=== PATIENT | female | born 1935 | race Caucasian/White ===

== ENCOUNTER 2018-02-06 08:00 | Inpatient (IN) | payer OTHER, BC ==
[2018-02-06 11:49] VITALS: BMI 22.6
[2018-02-07] MEDS ORDERED: GENTAMICIN SO4 80 MG/2 ML VIAL ONE (12:57)
[2018-02-07] MEDS ORDERED: THROMBIN (BOVINE) 20,000 UNIT VIAL TP ONE (12:59)
[2018-02-07] MEDS ORDERED: PROPOFOL 20 ML ONE (14:59)
[2018-02-07] MEDS ORDERED: ROCURONIUM BROMIDE 50 MG/5 ML VIAL ONE (14:59)
[2018-02-07] MEDS ORDERED: MIDAZOLAM HCL 2 MG/2 ML SINGLE DOSE VIAL ONE (14:59)
[2018-02-07] MEDS ORDERED: LIDOCAINE HCL/PF 2% SDV 5ML VIAL ONE (15:01)
[2018-02-07] MEDS ORDERED: ceFAZolin SODIUM 1 GM VIAL ONE ×2 (15:23→23:14)
[2018-02-07] MEDS ORDERED: VANCOMYCIN 1,000 MG VIAL (RESTRICTED TO ID ONLY) ONE (15:25)
[2018-02-07] MEDS ORDERED: ONDANSETRON 4 MG/2 ML VIAL ONE (15:30)
[2018-02-07] MEDS ORDERED: DEXAMETHASONE SOD PHOSPHATE 4 MG/1 ML VIAL ONE (15:30)
[2018-02-07] MEDS ORDERED: LIDOCAINE 1%/EPI 1:100000 (50 ML MULTI DOSE VIAL) INF ONE (16:00)
[2018-02-07] MEDS ORDERED: BACITRACIN 50,000 UNITS VIAL NR ONE (16:00)
[2018-02-07] MEDS ORDERED: GLYCOPYRROLATE 0.2 MG/1 ML VIAL ONE (16:15)
[2018-02-07] MEDS ORDERED: NEOSTIGMINE METHYLSULFATE 0.5 MG/ML - 10 ML MDV ONE (16:15)
[2018-02-07] MEDS ORDERED: oxyCODONE HCL 5 MG TABLET PO PRN ×2 (16:40)
[2018-02-07] MEDS ORDERED: ONDANSETRON 4 MG/2 ML VIAL IVPUSH PRN ×2 (16:40→16:43)
[2018-02-07] MEDS ORDERED: morphine SULFATE 4 MG/ML VIAL IVPUSH PRN (16:40)
[2018-02-07] MEDS ORDERED: diphenhydrAMINE HCL 25 MG CAPSULE (FP) PO PRN (16:40)
[2018-02-07] MEDS ORDERED: DEXAMETHASONE SOD PHOSPHATE 4 MG/1 ML VIAL IVPUSH PRN (16:43)
[2018-02-07] MEDS ORDERED: PROMETHAZINE HCL 25 MG/1 ML VIAL IVPB PRN (16:43)
[2018-02-07] MEDS ORDERED: HYDROmorphone *PCA* 10MG/50ML DISP.SYRIN PCA SCH (16:45)
[2018-02-07] MEDS ORDERED: LACTATED RINGERS SOLUTION 1,000 ML/1,000 ML INFUS.BAG IV SCH (16:45)
--- NOTE | 2018-02-07 16:52 | OP ---
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
--- NOTE | 2018-02-07 16:53 | SURG ---
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 For further detail, please refer to operative report.
[2018-02-07] MEDS ORDERED: CEFAZOLIN 1 GM in DEXTROSE 5%-WATER - 50 ML IVPB SCH (18:00)
[2018-02-07] MEDS: LACTATED RINGERS SOLUTION 1,000 ML IV SCH (18:17)
[2018-02-07] MEDS ORDERED: FLU VACCINE QUAD 60 MCG/0.5 ML (MDV 18-19) IM ONE (18:30)
[2018-02-07] MEDS: ATORVASTATIN CA 10 MG TABLET (FP) PO SCH (21:19)
[2018-02-07] MEDS: MELATONIN 5 MG TABLETS PO SCH (21:19)
[2018-02-07] MEDS: NADOLOL 20 MG TABLET (FP) PO SCH (21:20)
[2018-02-07] MEDS: DOCUSATE SODIUM 100 MG CAPSULE (FP) PO SCH (21:20)
[2018-02-07] MEDS: HEPARIN NA (PORCINE) 5,000 UNITS/ML 1ML VIAL SQ SCH (21:25)
[2018-02-07] MEDS ORDERED: BENAZEPRIL 20 MG PO SCH (22:00)
[2018-02-07] MEDS ORDERED: AMLODIPINE PO SCH (22:00)
[2018-02-07] MEDS ORDERED: [UNRECOGNIZED DRUG - OTHER] PO SCH (22:00)
[2018-02-07] MEDS ORDERED: DEXTROSE 5%-WATER - 50 ML IVPB ONE (23:14)
[2018-02-07] MEDS: CEFAZOLIN 1 GM in DEXTROSE 5%-WATER - 50 ML IVPB SCH (23:45)
[2018-02-08] MEDS: LACTATED RINGERS SOLUTION 1,000 ML IV SCH ×2 (02:42→16:56)
[2018-02-08] MEDS ORDERED: DEXTROSE 5%-WATER - 50 ML IVPB ONE ×2 (06:18→15:02)
[2018-02-08] MEDS ORDERED: ceFAZolin SODIUM 1 GM VIAL ONE ×2 (06:18→15:02)
[2018-02-08] MEDS: HEPARIN NA (PORCINE) 5,000 UNITS/ML 1ML VIAL SQ SCH ×3 (06:21→21:34)
[2018-02-08] MEDS: DOCUSATE SODIUM 100 MG CAPSULE (FP) PO SCH ×3 (06:22→21:33)
[2018-02-08] MEDS: CEFAZOLIN 1 GM in DEXTROSE 5%-WATER - 50 ML IVPB SCH ×2 (06:30→15:08)
[2018-02-08 08:03] LABS: HEMATOCRIT 37.3 % (32.4-45.2); HEMOGLOBIN 12.3 GM/dL (10.7-15.3); MCH 30.4 pg (25.7-33.7); MCHC 32.9 g/dl (32.0-36.0); MEAN CELL VOLUME 92.4 fl (80-96); MEAN PLT VOLUME 8.6 fl (7.5-11.1); PLATELET COUNT 208 K/MM3 (134-434); RBC 4.04 M/mm3 (3.60-5.2); RDW 14.1 % (11.6-15.6); WHITE BLOOD COUNT 13.8 K/mm3 (4.0-10.0)
[2018-02-08 08:25] LABS: ANION GAP 9 MMOL/L (8-16); BLOOD UREA NITROGEN 16 mg/dL (7-18); CALCIUM 8.1 mg/dL (8.5-10.1); CHLORIDE 99 mmol/L (98-107); CO2 25 mmol/L (21-32); CREATININE 0.8 mg/dL (0.55-1.3); GLUCOSE,RANDOM 125 mg/dL (74-106); POTASSIUM 4.1 mmol/L (3.5-5.1); SODIUM 134 mmol/L (136-145)
--- NOTE | 2018-02-08 08:25 | HP ---
Admitting History and Physical - Admission History of Present Illness: 82 y/o female with h/o spinal stenosis s/p surgery for decompression This am pt c/o having trouble raising rt arm, able to squeeze and full funtion of hand no complins of LE changes - Past Medical History Cardiovascular: Yes: HTN, Hyperlipdemia Musculoskeletal: Yes: Osteoarthritis, Other (Disc disease) Endocrine: Yes: Other (osteoporosis) - Past Surgical History Past Surgical History: Yes: Joint Replacement - Smoking History Smoking history: Never smoked Aproximately how many cigarettes per day: 0 - Alcohol/Substance Use Hx Alcohol Use: Yes (social) Home Medications - Allergies Allergies/Adverse Reactions: Allergies Allergy/AdvReac Type Severity Reaction Status Date / Time No Known Allergies Allergy Verified 02/07/18 10:58 - Home Medications Home Medications: Ambulatory Orders AmLODIPine 5MG/BENAZEPRIL 20MG [Lotrel 20] 5 - 20 mg PO BID 08/07/11 Atorvastatin Ca [Lipitor (Restricted To Cardiology)] 10 mg PO HS 08/07/11 Nadolol 20 mg PO BID 08/07/11 Ascorbic Acid [Vitamin C] 500 mg PO DAILY 02/06/18 Aspirin [ASA -] 81 mg PO DAILY 02/06/18 Cholecalciferol (Vitamin D3) [Vitamin D] 2,000 unit PO DAILY 02/06/18 Melatonin 5 mg PO HS 02/06/18 Risedronate Sodium 35 mg PO WEEKLY 02/06/18 Review of Systems - Review of Systems Cardiovascular: denies: Chest Pain Respiratory: denies: SOB Gastrointestinal: denies: Abdominal Pain, Nausea Genitourinary: reports: No Symptoms Neurological: reports: Weakness (right shoulder and upper arm). denies: Numbness, Parasthesia Physical Examination Vital Signs: Vital Signs Temperature 99.4 F 02/08/18 06:00 Pulse Rate 78 02/08/18 06:00 Respiratory Rate 20 02/08/18 06:00 Blood Pressure 139/67 02/08/18 06:00 O2 Sat by Pulse Oximetry (%) 93 L 02/07/18 21:00 Cardiovascular: Yes: Regular Rate and Rhythm Respiratory: Yes: Regular, CTA Bilaterally Gastrointestinal: Yes: Normal Bowel Sounds, Soft Musculoskeletal: Yes: Muscle Weakness (rt upper arm) Edema: No Neurological: Yes: Alert, Oriented, Weakness (right arm--unable to lift or maintain elevated at shoulder hand able to use with intact sensation --no sign cahnge compared to left LE from bilat). 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 Operation: C5/6 anterior cervical decompression fusion, hemicorpectomies and restorationist of lordosis with reconstruction using Peek cage and anterior plating Post-Operative Diagnosis: Same as Pre-op Surgeon: Shun Rodriguez Further plan per NS Code(s): Z98.890 - OTHER SPECIFIED POSTPROCEDURAL STATES (2) Right arm weakness Assessment/Plan: --maybe deltoid paralysis --D/w NS service --[place] of steroids --PT Code(s): R29.898 - OTH SYMPTOMS AND SIGNS INVOLVING THE MUSCULOSKELETAL SYSTEM (3) Spinal stenosis Assessment/Plan: - Above Code(s): M48.00 - SPINAL STENOSIS, SITE UNSPECIFIED (4) HTN (hypertension) Assessment/Plan: -Monitor on Current meds Code(s): I10 - ESSENTIAL (PRIMARY) HYPERTENSION (5) HLD (hyperlipidemia) Code(s): E78.5 - HYPERLIPIDEMIA, UNSPECIFIED
[2018-02-08] MEDS ORDERED: PANTOPRAZOLE SODIUM 40 MG VIAL IVPUSH ONE (08:42)
--- NOTE | 2018-02-08 09:42 | PN ---
Progress Note (short form) - Note Progress Note: POD #1 Alert. Sitting up in bed. C/o incisional tenderness as well as inability to keep her right arm elevated above her head. Uses her left hand to assist RUE into raised position. As soon as patients releases right hand...."crashes to bed ". Noticed it last night and informed RN who notified Dr. Rodriguez. States she has complete sensation in her RUE. Has pain when she engages muscle of her RUE ( points to deltoid muscle). Voiding spontaneously. Ambulating unassisted. Wearing her soft cervical collar as instructed. Tolerating clears. Denies n/v/f/ c, CP or SOB. Denies numbness/tingling. Denies LE weakness. Last Vital Signs Temp Pulse Resp BP Pulse Ox 99.4 F 78 20 139/67 93 L 02/08/18 06:00 02/08/18 06:00 02/08/18 06:00 02/08/18 06:00 02/07/18 21:00 CBC, BMP 02/08/18 07:00 02/08/18 07:00 GAMALIEL OUTPUT 02/07/18 02/08/18 19:38 06:00 GAMALIEL 5 25 PE Gen: alert. nad. Neck: Soft. Supple. Dressing c/d/i. GAMLAIEL serosang. Trach midline Neuro: Air Tucker strength 5/5 bilat. UE sensation intact bilat. CN II-XII intact. Lifting RUE against resistance markedly reduced compared to LUE. Problem List - Problems (1) Spondylosis, cervical Assessment/Plan: 82 yo female s/p C5/6 anterior cervical decompression fusion, hemicorpectomies and cheondoism of lordosis with reconstruction using Peek cage and anterior plating. Now c/o RUE weakness and pain in region of deltoid muscle s/p surgical procedure. Incisional pain controlled well via PRN meds. Cont to ambulate Wear your cervical collar 23/24h/day (may remove while eating or bathing) Incentive spirometer Decadron 10 mg (once) with Protonix x 1 Cont Decadron 4 mg Q6H IV ABX to cont while GAMALIEL drain remains in PT Above plan discussed with Dr. Rodriguez and agrees. Code(s): M47.812 - SPONDYLOSIS W/O MYELOPATHY OR RADICULOPATHY, CERVICAL REGION
[2018-02-08] MEDS: ASPIRIN 81 MG CHEWABLE TABLETS PO SCH (09:43)
[2018-02-08] MEDS: FERROUS SO4 325 MG TABLET (FP) PO SCH (09:44)
[2018-02-08] MEDS: FOLIC ACID 1 MG TABLET (FP) PO SCH (09:44)
[2018-02-08] MEDS: LISINOPRIL 20 MG TABLET (FP) PO SCH ×2 (09:45→21:43)
[2018-02-08] MEDS: ASCORBIC ACID 500 MG TABLET (FP) PO SCH (09:45)
[2018-02-08] MEDS: CHOLECALCIFEROL (VITAMIN D3) 1,000 UNIT TABLET (FP) PO SCH (09:45)
[2018-02-08] MEDS ORDERED: DEXAMETHASONE SOD PHOSPHATE 10 MG/1 ML VIAL IVPUSH ONE (09:45)
[2018-02-08] MEDS: DEXAMETHASONE SOD PHOSPHATE 4 MG/1 ML VIAL IVPUSH SCH ×3 (13:00→21:34)
--- NOTE | 2018-02-08 13:08 | PN ---
Progress Note (short form) - Note Progress Note: Anesthesia Pt seen and examined S:alert and awake c/o difficulty lifting r shoulder O: Vital Signs Temperature 98.6 F 02/08/18 08:10 Pulse Rate 67 02/08/18 08:10 Respiratory Rate 18 02/08/18 08:10 Blood Pressure 152/73 02/08/18 08:10 O2 Sat by Pulse Oximetry (%) 93 L 02/07/18 21:00 CBC, BMP 02/08/18 07:00 02/08/18 07:00 A/P Current Active Problems HLD (hyperlipidemia) (Acute) HTN (hypertension) (Acute) Right arm weakness (Acute) S/P spinal surgery (Acute) Spinal stenosis (Acute) Spondylosis, cervical (Acute) s/p C5-C6 ACDF RECYCLING TECHNICIAN stopped Surgeon aware of should issues Doing well post op Continue current care Patrick Soni MD
[2018-02-08] MEDS: NADOLOL 20 MG TABLET (FP) PO SCH ×2 (13:49→21:44)
[2018-02-08] MEDS: amLODIPine BESYLATE 5 MG TABLET (FP) PO SCH ×2 (13:51→21:43)
[2018-02-08] MEDS: ATORVASTATIN CA 10 MG TABLET (FP) PO SCH (21:33)
[2018-02-08] MEDS: MELATONIN 5 MG TABLETS PO SCH (21:33)
[2018-02-09] MEDS: DEXAMETHASONE SOD PHOSPHATE 4 MG/1 ML VIAL IVPUSH SCH ×4 (04:00→14:37)
[2018-02-09] MEDS: HEPARIN NA (PORCINE) 5,000 UNITS/ML 1ML VIAL SQ SCH ×2 (06:29→14:37)
[2018-02-09] MEDS: DOCUSATE SODIUM 100 MG CAPSULE (FP) PO SCH ×2 (06:29→14:37)
--- NOTE | 2018-02-09 07:37 | PN ---
Progress Note, Physician - Current Medication List Current Medications: Active Medications Amlodipine Besylate (Norvasc -) 5 mg PO BID [facility] Last Admin: 02/08/18 21:43 Dose: Not Given Ascorbic Acid (Vitamin C -) 500 mg PO DAILY [facility] Last Admin: 02/08/18 09:45 Dose: 500 mg Aspirin (Asa -) 81 mg PO DAILY [facility] Last Admin: 02/08/18 09:43 Dose: 81 mg Atorvastatin Calcium (Lipitor -) 10 mg PO HS [facility] Last Admin: 02/08/18 21:33 Dose: 10 mg Cholecalciferol (Vitamin D3 -) 2,000 unit PO DAILY [facility] Last Admin: 02/08/18 09:45 Dose: 2,000 unit Dexamethasone Sodium Phosphate (Decadron Injection -) 4 mg IVPUSH Q6H-IV [facility] Last Admin: 02/09/18 04:00 Dose: 4 mg Diphenhydramine HCl (Benadryl Injection -) 12.5 mg IVPUSH ONCE PRN PRN Reason: FOR ITCHING Diphenhydramine HCl (Benadryl -) 25 mg PO Q6H PRN PRN Reason: FOR ITCHING Docusate Sodium (Colace -) 100 mg PO TID [facility] Last Admin: 02/09/18 06:29 Dose: 100 mg Ferrous Sulfate (Feosol -) 325 mg PO DAILY [facility] Last Admin: 02/08/18 09:44 Dose: 325 mg Folic Acid (Folic Acid -) 1 mg PO DAILY [facility] Last Admin: 02/08/18 09:44 Dose: 1 mg Heparin Sodium (Porcine) (Heparin -) 5,000 unit SQ TID [facility] Last Admin: 02/09/18 06:29 Dose: 5,000 unit Lactated Ringer's (Lactated Ringers Solution) 1,000 mls @ 125 mls/hr IV ASDIR [facility] Last Admin: 02/08/18 16:56 Dose: Not Given Lisinopril (Prinivil) 20 mg PO BID [facility] Last Admin: 02/08/18 21:43 Dose: Not Given Melatonin (Melatonin) 5 mg PO HS [facility] Last Admin: 02/08/18 21:33 Dose: 5 mg Morphine Sulfate (Morphine Sulfate) 4 mg IVPUSH Q4H PRN PRN Reason: PAIN LEVEL 7 - 10 Nadolol (Corgard -) 20 mg PO BID [facility] Last Admin: 02/08/18 21:44 Dose: Not Given Ondansetron HCl (Zofran Injection) 4 mg IVPUSH Q4H PRN PRN Reason: NAUSEA AND/OR VOMITING Oxycodone HCl (Roxicodone -) 5 mg PO Q4H PRN PRN Reason: PAIN LEVEL 1-5 Oxycodone HCl (Roxicodone -) 10 mg PO Q4H PRN PRN Reason: PAIN LEVEL 6-10 Promethazine HCl (Phenergan Injection -) 12.5 mg IVPB Q6H PRN PRN Reason: NAUSEA AND/OR VOMITING - Objective Vital Signs: Vital Signs Temperature 98.5 F 02/09/18 06:00 Pulse Rate 66 02/09/18 06:00 Respiratory Rate 20 02/09/18 06:00 Blood Pressure 145/67 02/09/18 06:00 O2 Sat by Pulse Oximetry (%) 98 02/08/18 21:00 Cardiovascular: Yes: Regular Rate and Rhythm Respiratory: Yes: Regular, CTA Bilaterally Gastrointestinal: Yes: Normal Bowel Sounds, Soft Neurological: Yes: Weakness (of rt shoulder) Labs: CBC, BMP 02/08/18 07:00 02/08/18 07:00 Problem List - Problems (1) S/P spinal surgery Assessment/Plan: Operative Date: 02/07/18 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 Operation: C5/6 anterior cervical decompression fusion, hemicorpectomies and christian of lordosis with reconstruction using Peek cage and anterior plating Post-Operative Diagnosis: Same as Pre-op Surgeon: Shun Rodriguez Further plan per NS Code(s): Z98.890 - OTHER SPECIFIED POSTPROCEDURAL STATES (2) Right arm weakness Assessment/Plan: --maybe deltoid palsy --D/w NS service --[place] of steroids --PT Code(s): R29.898 - OTH SYMPTOMS AND SIGNS INVOLVING THE MUSCULOSKELETAL SYSTEM (3) Spinal stenosis Assessment/Plan: - Above Code(s): M48.00 - SPINAL STENOSIS, SITE UNSPECIFIED (4) HTN (hypertension) Assessment/Plan: -Monitor on Current meds Code(s): I10 - ESSENTIAL (PRIMARY) HYPERTENSION (5) HLD (hyperlipidemia) Code(s): E78.5 - HYPERLIPIDEMIA, UNSPECIFIED
--- NOTE | 2018-02-09 07:58 | PN ---
Progress Note (short form) - Note Progress Note: POD 2 Patient seen and examined. Relays concern over her RUE weakness, though states she feels her arm is improving and is hoping this is a good sign. Reports being able to get her fingers to her eyebrow and being able to hold a cup, both of which she wasn't able to do yesterday. Denies cp, sob, headache, dizziness, difficulty with speech/swallowing, confusion, difficulty walking, n/v/d, calf pain/edema. Reports tolerating PO without issue, voiding without issue. + sore throat. Vital Signs Temp 98.5 F 02/09/18 06:00 Pulse 66 02/09/18 06:00 Resp 20 02/09/18 06:00 BP 145/67 02/09/18 06:00 Pulse Ox 98 02/08/18 21:00 Intake & Output 02/08/18 02/08/18 02/09/18 11:59 23:59 11:59 Intake Total 550 Output Total 1755 1590 10 Balance -1755 -1040 -10 Intake: IV 500 Lactated Ringers Solution 500 1,000 ml @ 125 mls/hr IV ASDIR [facility] Rx#: [id number] IVPB 50 Output: Drainage 55 40 10 Right Neck 55 40 10 Urine 1700 1550 [place] 1700 Void 1550 Other: Voiding Method Toilet Toilet Gen: awake, alert, nad, speech fluent, comprehension intact Neck: soft collar in place, dressing with moderate serosanguious drainage, neck soft, no palpable hematoma. Resp: cta b/l CV: rrr, s1s2 Abdo: soft, nt/nd Neuro: No facial asymmetry noted, B/L le's 5/5 dorsiflexion/plantar flexion, knee flexion/extension, SILT b/l. LUE with 5/5 biceps/triceps/deltoids, RUE able bring fingers to eyebrow with elbow in flexion, able to hold cup (observed) , brings arm out to 50-60 degrees and can hold for approx 5 seconds, able to bring arm forward to 40 degrees and able to hold for 5 seconds. 1/5 detoid strength. RUE 5/5 biceps/triceps. Construction Tech strength intact b/l, shoulder shrug intact b/l SILT equal b/l UEs. A/P: 82 y/o F w/ PMHx OA s/p b/l knee replacements (2010), hld, htn, C5/6 spondylosis, now POD s/p C5/6 anterior cervical decompression fusion, hemicorpectomies and taoism of lordosis with reconstruction using Peek cage and anterior plating (02/07), complicated by RUE deltoid palsy. Pt with improvement since initiation of steroids. GAMALIEL output 10cc overnight GAMALIEL taken off of suction, removed without issue, tip intact, pt tolerated well. -Will continue steroid taper (instructions to follow) -Continue Decadron IV 4mg q6hrs -Pain control as ordered -Plan for d/c later today likely to home with outpt PT above d/w attending , Dr Arias
[2018-02-09] MEDS ORDERED: BENZOCAINE/MENTH/CETYLPYRD CL 1 EACH LOZENGE MM PRN (07:59)
[2018-02-09] MEDS ORDERED: amLODIPine BESYLATE 10 MG TABLET (FP) PO SCH (10:00)
[2018-02-09] MEDS ORDERED: LISINOPRIL 20 MG TABLET (FP) PO SCH (10:00)
[2018-02-09] MEDS: FOLIC ACID 1 MG TABLET (FP) PO SCH (10:24)
[2018-02-09] MEDS: FERROUS SO4 325 MG TABLET (FP) PO SCH ×2 (10:24→10:30)
[2018-02-09] MEDS: CHOLECALCIFEROL (VITAMIN D3) 1,000 UNIT TABLET (FP) PO SCH (10:24)
[2018-02-09] MEDS: ASCORBIC ACID 500 MG TABLET (FP) PO SCH (10:25)
[2018-02-09] MEDS: ASPIRIN 81 MG CHEWABLE TABLETS PO SCH (10:25)
[2018-02-09 14:40] VITALS: BP 154/58; PULSE 73; TEMP 98.3
--- NOTE | 2018-02-09 16:22 | CONS ---
DATE OF CONSULTATION: 02/09/2018 REFERRING PHYSICIAN: Figueroa Cormier MD. HISTORY OF PRESENT ILLNESS: The patient is an 82-year-old woman with a past medical history of C5-6 spondylosis who was admitted on February 07, 2018 after undergoing C5-6 anterior cervical decompression fusion with hemicorpectomies and baptist of lordosis reconstruction using PEEK cage and anterior plating performed by Dr. Esquivel. Postoperatively, the patient noted that she had weakness of her right upper extremity and was admitted for further workup and observation. The patient underwent a CT of the cervical spine which showed no fracture and status post anterior fusion C5-6 with interbody spacer. There was some soft tissue changes and anterior drain noted with surrounding air. The patient was seen by Dr. 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 The patient again was having problems raising her arm but she has noted slight improvement as she can bend her elbow better. She notes no numbness or tingling of the right upper extremity and no weakness in the hand distally. She notes no leg weakness, no visual field cut, no blurry vision or double vision that is new, no facial weakness, difficulty swallowing, and difficulty with speech. The patient did have blood work on February 08, 2018. WBCs were elevated at 13.8, hemoglobin 12.3, and platelet count over 200. She had a slightly low sodium of 134, potassium as 4.1, chloride 99, BUN 16, and creatinine 0.8. The patient was evaluated by Physical Therapy and was able to ambulate 120 feet without assistive device with a steady gait. The patient does feel terribly well without any significant amount of pain in the right upper extremity and no other weakness is noted in the left upper extremity or bilateral lower extremities. The patient is wearing a soft collar as directed by Dr. Esquivel and she can take off the collar for an hour or so on a daily basis. She states she has no bowel or bladder incontinence or retention. PAST MEDICAL AND SURGICAL HISTORY: She underwent bilateral knee replacements. She has a history of hypertension and hyperlipidemia. SOCIAL HISTORY: She lives alone in a private house. She does have stairs to the bedroom and premorbidly independent, ambulatory without assistive device. Current function is as above. She is a nontobacco user and drinks alcohol socially. ALLERGIES: None noted. MEDICATIONS: Reviewed. The patient was placed on some steroids dexamethasone to see if this would improve her condition. She is also on subcutaneous heparin for DVT prophylaxis as well as home medications such as Norvasc and Lipitor. She is on pain medication including Roxicodone. REVIEW OF SYSTEMS: She has no headache currently but was getting headaches prior to the neck surgery. No blurry vision or double vision. No lightheadedness or dizziness. No nausea or vomiting, difficulty swallowing, and difficulty chewing. No chest pain or shortness of breath, dyspnea on exertion, cough or abdominal discomfort. No bowel or bladder changes noted above. No numbness or tingling in the upper or lower extremities. No other joint arthralgias noted. Weakness of the right shoulder but no other weakness. No gait instability. No fever or chills. No loss or weight gain. PHYSICAL EXAMINATION: General: A pleasant woman looking younger than her age seen sitting up in a chair at the bedside in no acute distress. She is wearing a soft cervical collar and is awake, alert, and fully oriented. She has good insight into her medical conditions. HEENT: She is normocephalic and atraumatic. Her extraocular muscles appear intact. Neck: Again, she has a soft cervical collar unable to evaluate surgical incisions. Extremities: Without any pitting, edema or calf tenderness. There is no skin rash or breakdown in the upper or lower extremities noted. Neuromuscular: She is awake, alert, and oriented x3. Cranial nerves II through XII are grossly intact. She has weakness in the shoulder girdle including flexion, abduction, and external rotation of the right shoulder but seems to have good elbow flexion, elbow extension, wrist flexion/extension, and magnetic prospecting supervisor strength of the right upper extremity all 5/5. She has a positive drop arm test in the right shoulder and normal sensation to pinprick including in the lateral aspect of the right arm and the axillary nerve distribution. She has symmetric reflexes and good strength and motor power throughout the left upper extremity and bilateral lower extremities all 5/5. She has some arthritic changes in the hands which are not limiting. She has good joint stability and no other gross arthritic change other than the hands. No tenderness in the right shoulder. OVERALL IMPRESSION: 1. Right proximal upper extremity weakness rule out axillary neuropathy, upper trunk plexopathy seems less likely. Also differential for rotator cuff tear although this seems highly unlikely given the lack of any pain. 2. Status post C5-6 anterior cervical decompression fusion instrumentation due to C5-6 spondylosis. 3. Deficits in activities of daily living mainly related to the right arm weakness. 4. History of hypertension. 5. Hyperlipidemia. 6. Status post bilateral knee replacements. 7. Osteoarthritis of the hands not limiting. 8. Mild hyponatremia. 9. Leukocytosis. 10. Elevated risk for deep venous thrombosis due to immobility. PLAN/SUGGESTION: 1. The patient should continue physical therapy while in the hospital but also follow up as an outpatient. 2. Would consider giving her a sling to prevent subluxation as well as for comfort. 3. Consider EMG nerve conduction studies in 2 to 3 weeks if she does not show adequate improvement and strength of the right proximal upper extremity. 4. Consider imaging of the right shoulder if EMG is negative. 5. Follow up with Dr. Esquievl as directed. 6. Could probably discontinue subcutaneous heparin as she is up and ambulatory. 7. Discharge planning home with outpatient therapy if she is able to get to therapy. 8. Soft cervical collar per Dr. Esquivel. I provided her my card and would be happy to follow up with her as an outpatient. Thank you for this referral. KALLIE AUGUST M.D. [id number]
[2018-02-09] MEDS ORDERED: NADOLOL 20 MG TABLET (FP) PO SCH (22:00)
== END 2018-02-09 17:18 | disposition home or self-care (01) | DRG 472 ==
LOC: EDSTATUS 08:00 → JSAMEDAYSX 02-07 09:42 → J8W 02-07 18:00
PROVIDERS: ADMIT Family Medicine; ATTEND Neurological Surgery
PROC: 0RG00A0 Fusion of Occipital-cervical Joint with Interbody Fusion Device, Anterior Approach, Anterior Column, Open Approach (ICD-10-PCS; principal; 2018-02-07 11:00)
DX: M40.50 Lordosis, unspecified, site unspecified (principal); M47.12 Other spondylosis with myelopathy, cervical region; G97.82 Other postprocedural complications and disorders of nervous system; M48.00 Spinal stenosis, site unspecified; I10 Essential (primary) hypertension; E78.5 Hyperlipidemia, unspecified; G72.89 Other specified myopathies
CPT/HCPCS: 36415; 72125-TC; 76000-TC-FY; 80048; 85027; 86850; 86900; 86901; 94010; 94760; 97116-GP; 97161-GP; J1100; J1644

== ENCOUNTER 2018-11-01 03:52 | Emergency (ER) | payer OTHER, BC ==
[2018-11-01 04:21] VITALS: BP 179/81; PULSE 55; TEMP 98.2; BMI 22.6
[2018-11-01] MEDS ORDERED: ONDANSETRON *ODT* 4 MG TABLET SL ONE (04:54)
[2018-11-01] MEDS ORDERED: ONDANSETRON *ODT* 4 MG TABLET ONE (05:07)
--- NOTE | 2018-11-01 05:37 | PDOC ---
Documentation entered by Cam Diaz SCRIBE, acting as scribe for Aurora Lopez DO. Aurora Lopez DO: This documentation has been prepared by the Joe baptiste Daniel, SCRIBE, under my direction and personally reviewed by me in its entirety. I confirm that the documentation accurately reflects all work , treatment, procedures, and medical decision making performed by me. History of Present Illness - General Chief Complaint: Injury Stated Complaint: FALL/INJURY TO LT ARM History Source: Patient Exam Limitations: No Limitations - History of Present Illness Initial Comments: 11/01/18 05:06 The patient is an 83 year old female with a past medical history of HTN, HLD, and b/l knee replacements here today for evaluation of left shoulder pain s/p fall. The patient reports that she was walking around her house and tripped on her dog and fell landing on her left shoulder. She reports having 10/10 left shoulder pain and states that she is unable to move her left shoulder. Patient denies headache, lightheadedness. Denies fever, chills. Denies chest pain, shortness of breath. Denies nausea, vomiting, diarrhea, abdominal pain. Allergies: NKA PCP: Figueroa Cormier Past History - Past Medical History Allergies/Adverse Reactions: Allergies Allergy/AdvReac Type Severity Reaction Status Date / Time No Known Allergies Allergy Verified 11/01/18 04:21 Home Medications: Ambulatory Orders AmLODIPine 5MG/BENAZEPRIL 20MG [Lotrel (Nf)] 5 - 20 mg PO BID 08/07/11 Atorvastatin Ca [Lipitor] 10 mg PO HS 08/07/11 Nadolol 20 mg PO BID 08/07/11 Ascorbic Acid [Vitamin C] 500 mg PO DAILY 02/06/18 Aspirin [ASA -] 81 mg PO DAILY 02/06/18 Cholecalciferol (Vitamin D3) [Vitamin D3] 2,000 unit PO DAILY 02/06/18 Melatonin 5 mg PO HS 02/06/18 Dexamethasone [Decadron] 4 mg PO DAILY 4 Days #10 tablet 02/09/18 Docusate Sodium [Colace -] 100 mg PO TID capsule 02/09/18 Docusate Sodium [Colace] 100 mg PO BID #30 capsule 02/09/18 Ferrous Sulfate [Feosol] 325 mg PO DAILY ud 02/09/18 Nadolol [Corgard -] 40 mg PO HS tablet 02/09/18 Oxycodone HCl/Acetaminophen [Percocet 5-325 mg Tablet] 1 tab PO Q6H PRN #20 tablet MDD 4 02/09/18 Ondansetron [Ondansetron Odt] 8 mg PO Q8H PRN #20 tab.rapdis MDD 3 11/01/18 Oxycodone HCl/Acetaminophen [Percocet 5-325 mg Tablet] 1 tab PO Q8H PRN #12 tablet MDD 3 11/01/18 Anemia: No Asthma: No Cancer: No Cardiac Disorders: No CVA: No COPD: No CHF: No Dementia: No Diabetes: No GI Disorders: No Disorders: No HTN: Yes Hypercholesterolemia: Yes Liver Disease: No Thyroid Disease: No - Surgical History Cholecystectomy: Yes Orthopedic Surgery: Yes (isidoro. knee replacement 7 years ago) - Immunization History Td Vaccination: No - Suicide/Smoking/Psychosocial Hx Smoking Status: No Smoking History: Never smoked Have you smoked in the past 12 months: No Number of Cigarettes Smoked Daily: 0 Information on smoking cessation initiated: No Hx Alcohol Use: No Drug/Substance Use Hx: No Substance Use Type: None Hx Substance Use Treatment: No Review of Systems - Review of Systems Able to Perform ROS?: Yes Comments:: 11/01/18 05:06 GENERAL/CONSTITUTIONAL: No fever or chills. No weakness. HEAD, EYES, EARS, NOSE AND THROAT: No change in vision. No ear pain or discharge. No sore throat. GASTROINTESTINAL: No nausea, vomiting, diarrhea or constipation. GENITOURINARY: No dysuria, frequency, or change in urination. CARDIOVASCULAR: No chest pain or shortness of breath. RESPIRATORY: No cough, wheezing, or hemoptysis. MUSCULOSKELETAL: +left shoulder pain. No neck or back pain. SKIN: No rash NEUROLOGIC: No headache, vertigo, loss of consciousness, or change in strength/ sensation. ENDOCRINE: No increased thirst. No abnormal weight change. HEMATOLOGIC/LYMPHATIC: No anemia, easy bleeding, or history of blood clots. ALLERGIC/IMMUNOLOGIC: No hives or skin allergy. *Physical Exam - Vital Signs Last Vital Signs Temp Pulse Resp BP Pulse Ox 98.2 F 55 L 18 179/81 H 100 11/01/18 03:52 11/01/18 03:52 11/01/18 03:52 11/01/18 03:52 11/01/18 03:52 - Physical Exam Comments: 11/01/18 05:07 GENERAL: Awake, in no acute distress HEAD: No signs of trauma EYES: PERRLA, EOMI NECK: Normal ROM, supple, non tender LUNGS: Breath sounds equal, clear to auscultation bilaterally. No wheezes, and no crackles. Normal work of breathing. HEART: Regular rate and rhythm ABDOMEN: Soft, nontender, normoactive bowel sounds. No guarding, no rebound. No masses. Non-distended. CHEST WALL:non tender EXTREMITIES: tenderness with severely limited ROM of left shoulder with no obvious deformity, distal pulses intact. normal ROM at elbow and wrist. NEUROLOGICAL: Alert, oriented x4, non focal SKIN: Warm, Dry, normal turgor, no rashes or lesions noted. 11/01/18 05:42 ED Treatment Course - RADIOLOGY Radiology Studies Ordered: Category Date Time Status HUMERUS-LEFT [RAD] Stat Radiology 11/01/18 04:48 Taken - Medications Given in the ED: ED Medications Discontinued Medications Generic Name Dose Route Start Last Admin Trade Name Freq PRN Reason Stop Dose Admin Ondansetron HCl 4 mg 11/01/18 04:54 11/01/18 05:10 Zofran Odt - SL 11/01/18 04:55 4 mg ONCE ONE Administration Oxycodone/Acetaminophen 1 combo 11/01/18 04:54 11/01/18 05:10 Percocet 5/325 - PO 11/01/18 04:55 1 combo ONCE ONE Administration Medical Decision Making - Medical Decision Making 11/01/18 05:16 LEIGH Roth paged, awaiting call back. 11/01/18 05:25 LEIGH Roth returned call, case discussed. 11/01/18 05:41 83-year-old female status post fall with left upper arm pain X-rays consistent with a displaced proximal humerus fracture Case discussed with orthopedics who will follow-up promptly in the office Sling applied, Percocet and Zofran for pain both in the ED and on discharge Patient's son is at the bedside, she will be staying with family until further notice *DC/Admit/Observation/Transfer Diagnosis at time of Disposition: Humeral fracture - Discharge Dispostion Disposition: HOME Condition at time of disposition: Stable Decision to Admit order: No - Prescriptions Prescriptions: Ondansetron [Ondansetron Odt] 8 mg PO Q8H PRN #20 tab.rapdis MDD 3 PRN Reason: Pain Oxycodone HCl/Acetaminophen [Percocet 5-325 mg Tablet] 1 tab PO Q8H PRN #12 tablet MDD 3 PRN Reason: Pain - Referrals Referrals: Figueroa Cormier MD [Primary Care Provider] - Nikhil Lemon MD [Staff Physician] - - Patient Instructions Printed Discharge Instructions: How to Use a Sling, DI for Humeral Fracture - Post Discharge Activity - Attestations Physician Attestion: 11/01/18 05:35 I, Dr Aurora Lopez, attest that this document has been prepared under my direction and personally reviewed by me in its entirety. I further attest, that it accurately reflects all work, procedures and medical decision making performed by me.
== END 2018-11-01 06:45 | disposition home or self-care (01) ==
LOC: JER 03:52
DX: S42.302A Unspecified fracture of shaft of humerus, left arm, initial encounter for closed fracture (principal); W01.0XXA Fall on same level from slipping, tripping and stumbling without subsequent striking against object, initial encounter; Y93.89 Activity, other specified; Y92.009 Unspecified place in unspecified non-institutional (private) residence as the place of occurrence of the external cause; I10 Essential (primary) hypertension; E78.00 Pure hypercholesterolemia, unspecified; Z96.653 Presence of artificial knee joint, bilateral
CPT/HCPCS: 73060-TC-LT-FY; 99281-25; Q0162

== ENCOUNTER 2018-11-16 10:52 | Day surgery (SDC) | payer OTHER, BC ==
--- NOTE | 2018-11-16 07:51 | OP ---
Operative Note - Note: Operative Date: 11/16/18 Pre-Operative Diagnosis: Left humerus fracture Operation: Left humeral IM nail placement Post-Operative Diagnosis: Same as Pre-op Surgeon: Zeyad Nagel [employer] Observer Helper: Rafaela Olivares Anesthesia: General Operative Report Dictated: Yes
[~2018-11-16 10:52] MED LIST: LIDOCAINE 1%/EPI 1:100000 (50 ML MULTI DOSE VIAL) NR ONE
[2018-11-16 11:45] VITALS: BMI 22.4
[2018-11-16] MEDS ORDERED: LIDOCAINE HCL/PF 2% SDV 5ML VIAL ONE (13:32)
[2018-11-16] MEDS ORDERED: PROPOFOL 20 ML ONE ×2 (13:32→15:10)
[2018-11-16] MEDS ORDERED: ROPIVACAINE HCL 0.5% 30ML VIAL ONE (13:32)
[2018-11-16] MEDS ORDERED: MIDAZOLAM HCL 2 MG/2 ML SINGLE DOSE VIAL ONE (13:32)
[2018-11-16] MEDS ORDERED: fentaNYL CITRATE 250 MCG/5 ML VIAL ONE (13:32)
[2018-11-16] MEDS ORDERED: ceFAZolin SODIUM 1 GM VIAL ONE (14:07)
[2018-11-16] MEDS ORDERED: oxyCODONE HCL 5 MG TABLET PO PRN ×2 (14:34)
[2018-11-16] MEDS ORDERED: ONDANSETRON 4 MG/2 ML VIAL IVPUSH PRN (14:34)
[2018-11-16] MEDS ORDERED: LIDOCAINE 1%/EPI 1:100000 (20 ML MULTI DOSE VIAL) ONE (14:35)
[2018-11-16] MEDS ORDERED: AMPICILLIN NA/SULBACTAM NA 1.5 GM VIAL ONE (14:38)
[2018-11-16] MEDS ORDERED: LACTATED RINGERS SOLUTION 1,000 ML IV SCH (14:45)
[2018-11-16] MEDS ORDERED: ACETAMINOPHEN 325 MG TABLET (FP) PO PRN (17:04)
[2018-11-16] MEDS ORDERED: traMADol HCL 50 MG TABLET PO PRN (17:07)
[2018-11-16 17:27] LABS: HEMATOCRIT 36.5 % (32.4-45.2); MCH 30.6 pg (25.7-33.7); MCHC 32.9 g/dl (32.0-36.0); MEAN CELL VOLUME 93.3 fl (80-96); MEAN PLT VOLUME 7.6 fl (7.5-11.1); PLATELET COUNT 312 K/MM3 (134-434); RBC 3.92 M/mm3 (3.60-5.2); RDW 14.4 % (11.6-15.6)
[2018-11-16] MEDS ORDERED: DOCUSATE SODIUM 100 MG CAPSULE (FP) PO SCH (17:30)
[2018-11-16] MEDS ORDERED: ACETAMINOPHEN 1000 MG/100 ML VIAL (NON FORMULARY) IVPB ONE (19:00)
--- NOTE | 2018-11-16 19:58 | OP ---
DATE OF OPERATION: 11/16/2018 PREOPERATIVE DIAGNOSIS: Left humeral fracture. POSTOPERATIVE DIAGNOSIS: Left humeral fracture. PROCEDURE: Left humeral intramedullary nail, biceps tenotomy. SURGEON: Damir Covington M.D. NETWORK TECHNOLOGY INSTRUCTOR: Rafaela Olivares, physician academic affairs assistant, whose skillful assistance was necessary for the safe and timely performance of this procedure. Ms. Olivares was able to provide limb positioning, retraction, assist in fracture reduction, insertion of orthopedic fixation hardware. IMPLANTS: Rickie proximal humeral nail, T2 set, with 3 proximal 5-0 and 2 distal 4-0 locking screws. Nail is 8 mm x 240 mm. INDICATION: This is a pleasant 83-year-old female, suffered trip and fall. She was found to have a displaced humeral fracture. Treatment options including nonoperative versus operative management were reviewed. Operative risks were reviewed in detail including bleeding, infection, neurovascular injury, need for further surgery, postoperative pain and stiffness, nonunion, malunion, hardware failure or cutout. We discussed medical risks such as heart attack, stroke, DVT, PE, and . I addressed use of perioperative antibiotics and DVT prophylaxis. I reviewed the postoperative rehabilitation protocol. I addressed all the patient's questions and concerns, as well as her family's. They voiced understanding and elected to proceed. DESCRIPTION OF PROCEDURE: The patient was brought to the operating room, placed into the beach chair table. She was placed into a semirecumbent position. Care was taken to pad all the bony prominences and insure her cervical spine was in neutral alignment. The left upper extremity was then prepped and draped in the usual sterile fashion. A preoperative dose of antibiotics was given, and the usual timeout procedure was performed. An incision was now planned out to the anterior corner of the acromion. This was carried down through skin to subcutaneous tissue. The subcutaneous tissue was injected with lidocaine with epinephrine to limit bleeding. Electrocautery was used to maintain hemostasis. Along the anterior raphe of the deltoid, this was then split with finger dissection followed by blunt dissection. The bursa was then debrided over the rotator cuff. The rotator cuff was seen to be intact. The most superior point of the humerus was now palpated, and the guidewire was placed. Fluoroscopy was used to confirm guidewire placement. Incision was then made about this area, and the rotator cuff was retracted anteriorly and posteriorly. It should be noted that the biceps tendon was sitting just anterior to the area of the guidewire insertion point. The biceps did demonstrate some fraying, and given its proximity to the nail entry point, it was decided to perform biceps tenotomy. The wire was now advanced into the proximal humeral fragment. Placement was verified fluoroscopically as well as visually. This was then over-reamed with the opening reamer. The opening reamer was removed, along with the guidewire. The arm was now manually reduced, and the long guidewire was advanced down from the proximal fragment to the distal tip of the humeral medullary canal. Guidewire placement was verified fluoroscopically in 2 planes. The wire was measured and a 240 nail was chosen. Reaming was now started with a 7-1/2 sequentially up to a 9-1/2. The guidewire was now exchanged for a straight one. The nail was now advanced utilizing gentle pressure. Nail placement was confirmed fluoroscopically in 2 planes. At this point, the 2 proximal holes were filled. The trocars were able to be inserted through the proximal incision, the screws were drilled, measured, and inserted. The third trocar was not able to be inserted through the incision. Therefore, an incision was made distally over the deltoid. The incision was made, blunt spreading was used to get down to the level of the bone. The trocar was advanced down to the bone. The screw was then drilled, Measured and inserted as well. At this point all 3 proximal screws were examined, and both fracture reduction and hardware placement were satisfactory. At this point, the jig was removed. The rotator cuff was repaired using 2-0 FiberWire. The deltoid was loosely reapproximated using 1 FiberWire suture to myles the area and otherwise 0 Vicryl. The subcutaneous tissue was approximated using 2-0 Vicryl. The skin was closed using 3-0 nylon. Attention was now turned distally. Utilizing perfect circles technique, the 2 distal locking AP holes were identified. A 1-inch incision was made over the area of the holes. Utilizing finger dissection, the biceps and brachialis were spread down to the level of the bone. Using a finger to protect the neurovascular structures, 2 drill holes were made, they were then measured, and screws were inserted of appropriate length . At this time the entire construct was examined fluoroscopically and visually. Fracture reduction and hardware placement was satisfactory. The wounds were copiously irrigated. The additional wounds were now closed using 2-0 Vicryl and 3-0 nylon. Sterile dressing was placed. The patient was transferred to recovery room in stable condition. DAMIR COVINGTON M.D. COCO/[id number]
[2018-11-16] MEDS: DOCUSATE SODIUM 100 MG CAPSULE (FP) PO SCH (21:25)
[2018-11-16] MEDS ORDERED: MELATONIN 5 MG TABLETS PO SCH (22:00)
[2018-11-16] MEDS ORDERED: ATORVASTATIN CA 10 MG TABLET (FP) PO SCH (22:00)
[2018-11-16] MEDS ORDERED: NADOLOL 20 MG TABLET (FP) PO SCH (22:00)
[2018-11-17] MEDS ORDERED: ZOLPIDEM TARTRATE 5 MG TABLET PO ONE (01:25)
[2018-11-17 08:03] LABS: CALCIUM 8.2 mg/dl (8.5-10); CREATININE 0.7 mg/dl (0.55-1.3); POTASSIUM 4.7 mmol/L (3.5-5.1)
[2018-11-17 08:31] LABS: HEMATOCRIT 31.8 % (32.4-45.2); HEMOGLOBIN 10.7 GM/dl (10.7-15.3); MCH 31.1 pg (25.7-33.7); MCHC 33.6 g/dl (32.0-36.0); MEAN CELL VOLUME 92.8 fl (80-96); MEAN PLT VOLUME 7.9 fl (7.5-11.1); PLATELET COUNT 280 K/MM3 (134-434); RBC 3.43 M/mm3 (3.60-5.2); RDW 13.9 % (11.6-15.6); WHITE BLOOD COUNT 11.8 K/mm3 (4.0-10.8)
[2018-11-17] MEDS ORDERED: ASPIRIN 81 MG CHEWABLE TABLETS PO SCH (10:00)
[2018-11-17] MEDS ORDERED: CHOLECALCIFEROL (VIT D3) 1,000 UNIT (25 MCG) TABLET PO SCH (10:00)
[2018-11-17] MEDS ORDERED: amLODIPine BESYLATE 5 MG TABLET (FP) PO SCH (10:00)
[2018-11-17] MEDS ORDERED: BENAZEPRIL 20 MG PO SCH (10:00)
[2018-11-17] MEDS ORDERED: ASCORBIC ACID 500 MG TABLET (FP) PO SCH (10:00)
[2018-11-17] MEDS ORDERED: AMLODIPINE PO SCH (10:00)
[2018-11-17] MEDS ORDERED: [UNRECOGNIZED DRUG - OTHER] PO SCH (10:00)
[2018-11-17] MEDS ORDERED: PATIENT'S OWN MEDICATION (NON-FORMULARY) (Azilsartan Medoxomil [Edarbi] 80 MG) PO SCH (10:00)
[2018-11-17] MEDS ORDERED: LISINOPRIL 20 MG TABLET (FP) PO SCH (10:00)
--- NOTE | 2018-11-17 10:15 | PN ---
Progress Note (short form) - Note Progress Note: This is an 83 yo female POD#1 s/p left humeral IM nail placement. Patient is lying comfortably in bed. Complains of some overnight pain since resolved with pain medication. No other complaints at this time. Last Vital Signs Temp Pulse Resp BP Pulse Ox 98.2 F 69 18 131/47 L 97 11/17/18 08:18 11/17/18 08:18 11/17/18 08:18 11/17/18 08:18 11/17/18 07:00 PE: LUE Left arm in sling Dressing clean, dry and intact NVI Cap refill intact Abnormal Lab Results 11/16/11/17/11/17/18 17:20 07:21 07:21 WBC 11.0 H 11.8 H RBC 3.43 L Hct 31.8 L Sodium 132 L Random Glucose 135 H Calcium 8.2 L A: POD #1 s/p humeral IM nail placement P: Patient's pain well controlled Okay for discharge home Pain medication sent to pharmacy yesterday Continue use of sling Will f/u outpatient 10 days post-op as planned
[2018-11-17 10:37] VITALS: BP 121/35; PULSE 57; TEMP 99
[2018-11-17] MEDS: DOCUSATE SODIUM 100 MG CAPSULE (FP) PO SCH (11:14)
== END 2018-11-17 11:15 | disposition home or self-care (01) ==
LOC: FASU 10:52 → FM/S 18:12 → FASU 11-17 11:15
PROVIDERS: ATTEND Orthopaedic Surgery Sports Medicine
PROC: 0PSG06Z Reposition Left Humeral Shaft with Intramedullary Internal Fixation Device, Open Approach (ICD-10-PCS; principal; 2018-11-16 13:58)
DX: S42.302A Unspecified fracture of shaft of humerus, left arm, initial encounter for closed fracture (principal); X58.XXXA Exposure to other specified factors, initial encounter; Y93.9 Activity, unspecified; Y92.9 Unspecified place or not applicable
CPT/HCPCS: 24516; C1713; 36415; 73060-TC-LT-FY; 80048; 85027; 94760; J0131

== ENCOUNTER 2019-06-03 15:14 | Emergency (ER) | payer OTHER, BC ==
[2019-06-03 15:38] VITALS: BP 179/80; PULSE 74; TEMP 98.2; BMI 21.9
--- NOTE | 2019-06-03 15:40 | PDOC ---
History of Present Illness - General Chief Complaint: Injury Stated Complaint: TRIP AND FALL MULTIPLE FACIAL INJURY Time Seen by Provider: 06/03/19 15:31 History Source: Patient, Friend Exam Limitations: No Limitations - History of Present Illness Initial Comments: 83 yo F presents s/p mechanical fall. She had just finished a 2 mile walk outdoors with a friend, tripped on a sidewalk and fell forward onto her face. She sustained multiple lacerations and abrasions. No LOC. +Mild BOLIVAR. No numbness , weakness. +Swelling above the R eye. Cannot recall last tdap booster. Past History - Past Medical History Allergies/Adverse Reactions: Allergies Allergy/AdvReac Type Severity Reaction Status Date / Time No Known Allergies Allergy Verified 06/03/19 15:17 Home Medications: Ambulatory Orders AmLODIPine 5MG/BENAZEPRIL 20MG [Lotrel (Nf)] 5 - 20 mg PO DAILY 08/07/11 Atorvastatin Ca [Lipitor] 10 mg PO HS 08/07/11 Ascorbic Acid [Vitamin C] 500 mg PO DAILY 02/06/18 Aspirin [ASA -] 81 mg PO DAILY 02/06/18 Cholecalciferol (Vitamin D3) [Vitamin D3] 2,000 unit PO DAILY 02/06/18 Melatonin 5 mg PO HS 02/06/18 Nadolol [Corgard -] 40 mg PO HS tablet 02/09/18 Azilsartan Medoxomil [Edarbi] 80 mg PO DAILY 11/10/18 Docusate Sodium [Colace -] 100 mg PO PRN 11/10/18 Clindamycin [Cleocin -] 300 mg PO Q6HPO #28 capsule 06/03/19 Anemia: No Asthma: No Cancer: No Cardiac Disorders: No CVA: No COPD: No CHF: No Dementia: No Diabetes: No GI Disorders: No Disorders: No HTN: Yes Hypercholesterolemia: Yes Liver Disease: No Seizures: No Thyroid Disease: No - Surgical History Abdominal Surgery: No Appendectomy: No Cardiac Surgery: No Cholecystectomy: Yes Lung Surgery: No Neurologic Surgery: No Orthopedic Surgery: Yes (isidoro. knee replacement 7 years ago) - Immunization History Td Vaccination: No - Psycho Social/Smoking Cessation Hx Smoking Status: No Smoking History: Never smoked Have you smoked in the past 12 months: No Number of Cigarettes Smoked Daily: 0 Hx Alcohol Use: Yes (SOCIAL) Drug/Substance Use Hx: No Substance Use Type: None Hx Substance Use Treatment: No Review of Systems - Review of Systems Able to Perform ROS?: Yes Comments:: GENERAL/CONSTITUTIONAL: No fever or chills. No weakness. HEAD, EYES, EARS, NOSE AND THROAT: No change in vision. No ear pain or discharge. No sore throat. CARDIOVASCULAR: No chest pain or shortness of breath. RESPIRATORY: No cough, wheezing, or hemoptysis. GASTROINTESTINAL: No nausea, vomiting, diarrhea or constipation. GENITOURINARY: No dysuria, frequency, or change in urination. MUSCULOSKELETAL: +Left knee pain. No neck or back pain. SKIN: +2 facial lacerations NEUROLOGIC: +Headache. No vertigo, loss of consciousness, or change in strength/ sensation. ENDOCRINE: No increased thirst. No abnormal weight change. HEMATOLOGIC/LYMPHATIC: No anemia or history of blood clots. Takes daily baby aspirin ALLERGIC/IMMUNOLOGIC: No hives or skin allergy. *Physical Exam - Vital Signs Last Vital Signs Temp Pulse Resp BP Pulse Ox 98.2 F 74 16 179/80 H 99 06/03/19 15:16 06/03/19 15:16 06/03/19 15:16 06/03/19 15:16 06/03/19 15:16 - Physical Exam GENERAL: Awake, alert, and fully oriented, in no acute distress HEAD: +3 cm L-shaped laceration just medial to the R eyebrow, with significant underlying hematoma, oozing blood. +Small 1.5 cm linear laceration to R nose just lateral to the bridge, not affecting the eye. +Hematoma surrounding the R eye with swelling to the lid. No tearing to the eye. +Swelling to the nasal bridge, however, without significant deformity EYES: PERRLA, EOMI, sclera anicteric, conjunctiva clear ENT: Auricles normal inspection, hearing grossly normal, nares patent, oropharynx clear without exudates. Moist mucosa NECK: Normal ROM, supple, no lymphadenopathy, JVD, or masses LUNGS: Breath sounds equal, clear to auscultation bilaterally. No wheezes, and no crackles HEART: Regular rate and rhythm, normal S1 and S2, no murmurs, rubs or gallops ABDOMEN: Soft, nontender, normoactive bowel sounds. No guarding, no rebound. No masses EXTREMITIES: Normal range of motion, no edema. No clubbing or cyanosis. No cords, erythema, or tenderness NEUROLOGICAL: Cranial nerves II through XII grossly intact. Normal speech, normal gait. Motor and sensation intact SKIN: Warm, dry, normal turgor, no rashes or lesions noted. Procedures - Laceration/Wound Repair Right Face Wound Length: 2.6 to 5.0 cm Wound Explored: clean, no foreign body present Wound's Depth, Shape: flap, contused tissue Irrigated w/ Saline: Yes Anesthesia: 1% Lidocaine Amount of Anesthetic (ccs): 2 Wound Debrided: minimal Wound Repaired With: Sutures Suture Size/Type: 6:0 (6 sutures), 5:0 (3 sutures (needed due to tension on wound)) Number of Sutures: 9 Layer Closure: No Sterile Dressing Applied: Yes Head Wound Length: to 2.5 cm Wound Explored: clean, no foreign body present Wound's Depth, Shape: superficial, linear Irrigated w/ Saline: Yes Anesthesia: 1% Lidocaine Amount of Anesthetic (ccs): 1 Wound Repaired With: Sutures Suture Size/Type: 6:0 Number of Sutures: 3 Sterile Dressing Applied: No (unable due to location on the side of the nasal bridge) Progress: 06/03/19 17:02 Two wounds were closed- the larger 3cm L-shaped laceration medial to the eyebrow , as well as a smaller linear laceration to the side of the nose. Total of 12 sutures. +Hemostasis. Patient tolerated well. Medical Decision Making - Medical Decision Making 06/03/19 17:04 Wounds repaired, tdap given. Patient currently in CT. Will reassess for need for any xrays when she returns (she mentioned knee pain while she was getting sutures). She took tylenol prior to arrival, no additional medication at this point. 06/03/19 18:30 No other bony injuries requiring imaging. Patient has abrasions overlying the L knee, but full ROM. +Abrasions to hands which are small, no active bleeding. Placed on clinda secondary to open fracture of the nasal bridge. ENT f/u. Stable for AL home. Patient ambulatory, with family to go home. Discharge - Discharge Information Problems reviewed: Yes Clinical Impression/Diagnosis: Head injury Qualifiers: Encounter type: initial encounter Qualified Code(s): S09.90XA - Unspecified injury of head, initial encounter Laceration of face Qualifiers: Encounter type: initial encounter Qualified Code(s): S01.81XA - Laceration without foreign body of other part of head, initial encounter Condition: Stable Disposition: HOME - Admission No - Additional Discharge Information Prescriptions: Clindamycin [Cleocin -] 300 mg PO Q6HPO #28 capsule - Follow up/Referral Referrals: Carlos Duckworth MD [Staff Physician] - - Patient Discharge Instructions Patient Printed Discharge Instructions: DI for Nose Fracture, DI for Laceration Repair -- Simple, DI for Closed Head Injury, DI for Open Fracture Additional Instructions: KEEP THE WOUNDS DRY FOR THE FIRST 48 HOURS. YOU MAY REPLACE THE GAUZE IF IT IS SATURATED. YOU MAY NOTICE SWELLING AND BRUISING AROUND YOUR EYE SOCKET. THE SWELLING STARTS TO HEAL, IT WILL MOVE DOWNWARD WITH GRAVITY. AFTER 48 HOURS IT IS OK TO GET THE WOUNDS WET. DO NOT APPLY ANY LOTIONS, CREAMS , OR SOAPS. KEEP THEM DRY. WHILE YOU ARE HOME YOU MAY CHOOSE TO LET THEM AIR OUT. IF YOU ARE OUT IN PUBLIC, IT MAY BE BETTER TO COVER THEM WITH GAUZE TO AVOID ANY DEBRIS. RETURN TO THE ER BETWEEN Tuesday AND Tuesday TO HAVE THE SUTURES REMOVED. RETURN TO THE ER IMMEDIATELY FOR ANY SEVERE PAIN, REDNESS, DRAINAGE OF PUS, OR FEVER. - Post Discharge Activity
[2019-06-03] MEDS ORDERED: DIPHTH,PERTUSS(ACELL),TET 0.5 ML DISP.SYRIN IM ONE ×2 (15:59→16:08)
== END 2019-06-03 18:36 | disposition home or self-care (01) ==
LOC: FER 15:14
PROC: 0HQ1XZZ Repair Face Skin, External Approach (ICD-10-PCS; principal; 2019-06-03)
PROC: 3E0234Z Introduction of Serum, Toxoid and Vaccine into Muscle, Percutaneous Approach (ICD-10-PCS; 2019-06-03)
DX: S01.81XA Laceration without foreign body of other part of head, initial encounter (principal); S09.90XA Unspecified injury of head, initial encounter; W18.39XA Other fall on same level, initial encounter; Y93.89 Activity, other specified; Y92.410 Unspecified street and highway as the place of occurrence of the external cause; I10 Essential (primary) hypertension; E78.00 Pure hypercholesterolemia, unspecified
CPT/HCPCS: 70450-TC; 70486-TC; 72125-TC; 90715; 99283-25

== ENCOUNTER 2019-06-09 08:53 | Emergency (ER) | payer OTHER, BC ==
[2019-06-09 09:07] VITALS: BP 141/59; PULSE 55; TEMP 98.3; BMI 21.9
--- NOTE | 2019-06-09 09:08 | PDOC ---
Suture Removal/Wound Check HPI - History of Present Illness Chief Complaint: Suture/Staple Removal(Here) Stated Complaint: SUTURE REMOVAL Time Seen by Provider: 06/09/19 08:55 History Source: Yes: Patient Exam Limitations: Yes: No Limitations Treated at: [facility] ED Date of Last ED visit: 06/03/19 - Previous ED Treatment Type of procedure performed on last visit: Yes: Laceration Repair Tetanus Immunization: Yes: Given at last ED visit Antibiotics Prescribed: Yes (clindamycin) - Onset of Previous Treatment Date of Occurence: 06/03/19 Timing/Duration/Severity of Onset: reports: Prior to presentation (Pt with mechanical trip and fall onto the concrete road with facial contusions and lacerations. Pt had repair of facial lac on 06/03. Pt denies nolasco. No blurred vision, no paresthesias. no weakness. no dizziness. no nausea. no signs of concussive symptoms today. States still with neck pain. Has had surgery in the past with Dr. Rodriguez and follows with Dr. Skinner. Pt followed up with a plast surgeon who recommended follow up with him again in 3 weeks for scar treatment. Pt denies all somatic complaints and presents for suture removal. Pt ambulated into the ER.) Past History - Travel Traveled outside of the country in the last 30 days: No Close contact w/someone who was outside of country & ill: No - Past Medical History Allergies/Adverse Reactions: Allergies Allergy/AdvReac Type Severity Reaction Status Date / Time No Known Allergies Allergy Verified 06/09/19 09:08 Home Medications: Ambulatory Orders AmLODIPine 5MG/BENAZEPRIL 20MG [Lotrel (Nf)] 5 - 20 mg PO DAILY 08/07/11 Atorvastatin Ca [Lipitor] 10 mg PO HS 08/07/11 Ascorbic Acid [Vitamin C] 500 mg PO DAILY 02/06/18 Aspirin [ASA -] 81 mg PO DAILY 02/06/18 Cholecalciferol (Vitamin D3) [Vitamin D3] 2,000 unit PO DAILY 02/06/18 Melatonin 5 mg PO HS 02/06/18 Nadolol [Corgard -] 40 mg PO HS tablet 02/09/18 Azilsartan Medoxomil [Edarbi] 80 mg PO DAILY 11/10/18 Docusate Sodium [Colace -] 100 mg PO PRN 11/10/18 Clindamycin [Cleocin -] 300 mg PO Q6HPO #28 capsule 06/03/19 Anemia: No Asthma: No Cancer: No Cardiac Disorders: No CVA: No COPD: No CHF: No Dementia: No Diabetes: No GI Disorders: No Disorders: No HTN: Yes Hypercholesterolemia: Yes Liver Disease: No Seizures: No Thyroid Disease: No - Surgical History Abdominal Surgery: No Appendectomy: No Cardiac Surgery: No Cholecystectomy: Yes Lung Surgery: No Neurologic Surgery: No Orthopedic Surgery: Yes (isidoro. knee replacement 7 years ago) - Immunization History Td Vaccination: No Immunization Up to Date: Yes - Psycho Social/Smoking Cessation Hx Smoking Status: No Smoking History: Never smoked Have you smoked in the past 12 months: No Number of Cigarettes Smoked Daily: 0 Information on smoking cessation initiated: No Hx Alcohol Use: No Drug/Substance Use Hx: No Substance Use Type: None Hx Substance Use Treatment: No Suture Removal/Wound Check PE - Physical Exam Laceration/Wound Check Symptoms: reports: None Current Severity Level: None Maximum Severity Level: None Pain Localization: None Location of Laceration/Wound: right: Eye, Nose Pain Radiation: None (Gen: aaox3, nad heent: ecchymosis to b/l eyes, abrasion to upper lip and chin are healing with a scab in place, sutures in place to R medial eyebrow and R nasal bridge, no bleeding, no redness, no ttp neck: supple , L paraspinal ttp heart: +s1s2 reg lungs: cta b/l abd: soft, nt/nd +bs ext: no c/c/e) *Review of Systems - Review of Systems Able to Perform ROS?: Yes Constitutional: No: Chills, Fever HEENTM: No: Eye Pain, Blurred Vision, Double Vision, Nose Pain Respiratory: No: Cough, Shortness of Breath Cardiac (ROS): No: Chest Pain ABD/GI: No: Diarrhea, Nausea, Vomiting : No: Burning Musculoskeletal: Yes: Neck Pain. No: Back Pain Neurological: No: Headache, Numbness, Paresthesia, Tingling, Weakness, Ataxia All Other Systems: Reviewed and Negative *Physical Exam - Vital Signs Last Vital Signs Temp Pulse Resp BP Pulse Ox 98.3 F 55 L 20 141/59 L 100 06/09/19 08:54 06/09/19 08:54 06/09/19 08:54 06/09/19 08:54 06/09/19 08:54 Medical Decision Making - Medical Decision Making 06/09/19 09:38 a/p: 83yo female with facial lac 1 week ago here for suture removal -12 sutures removed without difficulty -bacitracin applied -tetanus updated on last visit -has appt with plastic for scar treatment -on clinda for facial lacs/abrasions -still with neck pain, no paresthesias or weakness, no neuro findings, follows with Dr. Skinner and Dr. rodriguez- recommend follow up with them this week, discussed poss need for MRI as outpt -discussed prior ct findings -pt stable for dc to home and follow up with docs as discussed with local wound care 06/09/19 09:42 a copy of the ct report of the cervical spine was given to the patient. Discharge - Discharge Information Problems reviewed: Yes Clinical Impression/Diagnosis: Visit for suture removal Condition: Stable Disposition: HOME - Admission No - Follow up/Referral Referrals: Shun Rodriguez MD, [facility] [Staff Physician] - David Skinner MD [Staff Physician] - - Patient Discharge Instructions Patient Printed Discharge Instructions: DI for Suture Removal Additional Instructions: Please continue to apply bacitracin to the wound as discussed. Please continue your antibiotics. Given you are still having neck pain, please contact your neurologist and neurosurgeon to schedule a follow up appointment. You may need further imaging of your neck and cervical spine. You may need an MRI. Please return to the ER with any further concerns or complaints. - Post Discharge Activity
== END 2019-06-09 09:48 | disposition home or self-care (01) ==
LOC: FER 08:53
DX: Z48.02 Encounter for removal of sutures (principal)
CPT/HCPCS: 99281-25

== ENCOUNTER 2021-04-11 17:40 | Inpatient (IN) | payer OTHER, BC ==
[2021-04-11 18:23] LABS: BASO % 0.6 % (0-2.0); EOS % 1.7 % (0-4.5); HEMATOCRIT 38.4 % (32.4-45.2); HEMOGLOBIN 13.1 GM/dL (10.7-15.3); MCH 30.9 pg (25.7-33.7); MCHC 34.2 g/dl (32.0-36.0); MEAN CELL VOLUME 90.3 fl (80-96); MEAN PLT VOLUME 7.8 fl (7.5-11.1); MONO % 8.9 % (3.8-10.2); NEUT % 77.8 % (42.8-82.8); PLATELET COUNT 274 10^3/uL (134-434); RBC 4.26 M/mm3 (3.60-5.2); RDW 14.6 % (11.6-15.6); WHITE BLOOD COUNT 13.7 K/mm3 (4.0-10.0)
[2021-04-11 18:30] LABS: INR 1.28 (0.83-1.09)
[2021-04-11 18:44] LABS: CALCIUM 8.8 mg/dL (8.5-10.1)
[2021-04-11 18:45] LABS: ALBUMIN 3.9 g/dl (3.4-5.0); BLOOD UREA NITROGEN 20.1 mg/dL (7-18)
[2021-04-11 18:48] LABS: CREATININE 0.8 mg/dL (0.55-1.3)
[2021-04-11 18:49] LABS: TOT PROT 7.2 g/dl (6.4-8.2)
[2021-04-11 18:50] LABS: BILIRUBIN,TOTAL 0.4 mg/dL (0.2-1)
[2021-04-11] MEDS ORDERED: LIDOCAINE 5% TOPICAL PATCH TP ONE (19:39)
[2021-04-11] MEDS ORDERED: LIDOCAINE 5% TOPICAL PATCH ONE (20:37)
[2021-04-11] MEDS ORDERED: ACETAMINOPHEN 1000 MG/100 ML VIAL IVPB ONE (21:00)
[2021-04-11] MEDS ORDERED: ACETAMINOPHEN INJECTION 100 ML IVPB ONE (21:21)
[2021-04-11] MEDS ORDERED: ATORVASTATIN CA 10 MG TABLET (FP) PO SCH (22:00)
[2021-04-11] MEDS ORDERED: NADOLOL 20 MG TABLET (FP) PO SCH (22:15)
[2021-04-11] MEDS ORDERED: DOCUSATE SODIUM 100 MG CAPSULE (FP) PO PRN (22:19)
[2021-04-11] MEDS ORDERED: ATORVASTATIN CA 10 MG TABLET (FP) ONE (22:44)
[2021-04-12] MEDS ORDERED: DEXTROSE 5%-0.45% SALINE 1,000 ML IV SCH (00:01)
[2021-04-12 01:59] VITALS: BMI 25.2
[2021-04-12] MEDS ORDERED: ACETAMINOPHEN 1000 MG/100 ML VIAL IVPB PRN ×2 (03:00→10:26)
[2021-04-12] MEDS ORDERED: LIDOCAINE PATCH REMOVAL MC SCH (08:00)
[2021-04-12] MEDS ORDERED: MIDAZOLAM HCL 2 MG/2 ML SINGLE DOSE VIAL ONE (08:44)
[2021-04-12] MEDS ORDERED: LIDOCAINE HCL/PF 2% SDV 5ML VIAL ONE (08:46)
[2021-04-12] MEDS ORDERED: ETOMIDATE 20 MG/10 ML AMPUL IVPUSH ONE (08:46)
[2021-04-12] MEDS ORDERED: PROPOFOL 20 ML ONE ×3 (08:47)
[2021-04-12] MEDS ORDERED: SUCCINYLCHOLINE CHLORIDE 200 MG/10 ML SYRINGE ONE (08:47)
[2021-04-12] MEDS ORDERED: PHENYLEPHRINE HCL 10 MG/1 ML SINGLE DOSE VIAL ONE (08:51)
[2021-04-12] MEDS ORDERED: ceFAZolin SODIUM 1 GM VIAL ONE ×2 (08:53→17:06)
[2021-04-12] MEDS ORDERED: ceFAZolin SODIUM 1 GM VIAL IVPB ONE (09:00)
[2021-04-12] MEDS ORDERED: LISINOPRIL 20 MG TABLET PO SCH (10:00)
[2021-04-12] MEDS ORDERED: ASCORBIC ACID 500 MG TABLET (FP) PO SCH (10:00)
[2021-04-12] MEDS ORDERED: amLODIPine BESYLATE 5 MG TABLET (FP) PO SCH (10:00)
[2021-04-12] MEDS ORDERED: CHOLECALCIFEROL (VIT D3) 1,000 UNIT (25 MCG) TABLET PO SCH (10:00)
[2021-04-12] MEDS ORDERED: ACETAMINOPHEN 1000 MG/100 ML VIAL IVPB ONE (10:07)
[2021-04-12] MEDS ORDERED: ONDANSETRON 4 MG/2 ML VIAL IVPUSH PRN (10:07)
[2021-04-12] MEDS ORDERED: ACETAMINOPHEN INJECTION 100 ML IVPB ONE (10:09)
[2021-04-12] MEDS ORDERED: DOCUSATE SODIUM 100 MG CAPSULE (FP) PO PRN (10:26)
[2021-04-12] MEDS ORDERED: ONDANSETRON 4 MG/2 ML VIAL ONE (10:53)
[2021-04-12 12:37] LABS: HEMATOCRIT 34.1 % (32.4-45.2); HEMOGLOBIN 11.5 GM/dL (10.7-15.3); MCH 30.7 pg (25.7-33.7); MCHC 33.7 g/dl (32.0-36.0); MEAN CELL VOLUME 91.2 fl (80-96); MEAN PLT VOLUME 7.8 fl (7.5-11.1); PLATELET COUNT 230 10^3/uL (134-434); RBC 3.73 M/mm3 (3.60-5.2); RDW 14.6 % (11.6-15.6); WHITE BLOOD COUNT 18.1 K/mm3 (4.0-10.0)
[2021-04-12 13:00] LABS: CALCIUM 7.8 mg/dL (8.5-10.1)
[2021-04-12 13:01] LABS: BLOOD UREA NITROGEN 13.3 mg/dL (7-18)
[2021-04-12 13:04] LABS: CREATININE 0.6 mg/dL (0.55-1.3)
[2021-04-12 13:05] LABS: BILIRUBIN,TOTAL 0.7 mg/dL (0.2-1); TOT PROT 6.2 g/dl (6.4-8.2)
[2021-04-12 13:53] LABS: ANISOCYTOSIS 1+; MACROCYTOSIS 0; PLATELET ESTIMATE NORMAL
[2021-04-12] MEDS ORDERED: DEXTROSE 5%-WATER - 50 ML IVPB ONE (17:06)
[2021-04-12] MEDS: CEFAZOLIN 1 GM in DEXTROSE 5%-WATER - 50 ML IVPB SCH (17:23)
[2021-04-12] MEDS: LACTATED RINGERS SOLUTION 1,000 ML IV SCH (17:24)
[2021-04-12] MEDS: NADOLOL 20 MG TABLET (FP) PO SCH (21:11)
[2021-04-12] MEDS: ATORVASTATIN CA 10 MG TABLET (FP) PO SCH (21:11)
[2021-04-13] MEDS ORDERED: ONDANSETRON 4 MG/2 ML VIAL IVPUSH ONE (00:49)
[2021-04-13] MEDS ORDERED: DEXTROSE 5%-WATER - 50 ML IVPB ONE ×2 (01:04→10:07)
[2021-04-13] MEDS ORDERED: ceFAZolin SODIUM 1 GM VIAL ONE ×2 (01:04→10:07)
[2021-04-13] MEDS: CEFAZOLIN 1 GM in DEXTROSE 5%-WATER - 50 ML IVPB SCH ×2 (01:09→10:06)
[2021-04-13] MEDS: CHOLECALCIFEROL (VIT D3) 1,000 UNIT (25 MCG) TABLET PO SCH (10:08)
[2021-04-13] MEDS: NADOLOL 20 MG TABLET (FP) PO SCH ×2 (10:08→21:42)
[2021-04-13] MEDS: amLODIPine BESYLATE 5 MG TABLET (FP) PO SCH (10:08)
[2021-04-13] MEDS: LISINOPRIL 20 MG TABLET PO SCH (10:08)
[2021-04-13] MEDS: APIXABAN 2.5 MG TABLET PO SCH ×2 (10:08→21:42)
[2021-04-13] MEDS: ASCORBIC ACID 500 MG TABLET (FP) PO SCH (10:08)
[2021-04-13] MEDS: LIDOCAINE PATCH REMOVAL MC SCH (10:08)
[2021-04-13 10:13] LABS: BASO % 0.2 % (0-2.0); EOS % 0.3 % (0-4.5); LYMPH % 12.7 % (8-40); MCH 30.5 pg (25.7-33.7); MCHC 33.4 g/dl (32.0-36.0); MEAN CELL VOLUME 91.3 fl (80-96); NEUT % 79.8 % (42.8-82.8); PLATELET COUNT 232 10^3/uL (134-434); RBC 3.29 M/mm3 (3.60-5.2); RDW 14.9 % (11.6-15.6); WHITE BLOOD COUNT 16.7 K/mm3 (4.0-10.0)
[2021-04-13 10:39] LABS: BLOOD UREA NITROGEN 15.9 mg/dL (7-18); CALCIUM 8.2 mg/dL (8.5-10.1)
[2021-04-13 10:43] LABS: CREATININE 0.7 mg/dL (0.55-1.3)
[2021-04-13 10:44] LABS: BILIRUBIN,TOTAL 0.7 mg/dL (0.2-1)
[2021-04-13] MEDS: LACTATED RINGERS SOLUTION 1,000 ML IV SCH (12:07)
[2021-04-13] MEDS ORDERED: oxyCODONE HCL 5 MG TABLET PO PRN (12:39)
[2021-04-13] MEDS: ACETAMINOPHEN 325 MG TABLET (FP) PO PRN (20:25)
[2021-04-13] MEDS ORDERED: MELATONIN 5 MG TABLETS PO PRN (21:24)
[2021-04-13] MEDS: PREGABALIN 75 MG CAPSULE PO SCH (21:42)
[2021-04-13] MEDS: ATORVASTATIN CA 10 MG TABLET (FP) PO SCH (21:42)
[2021-04-13] MEDS: DOCUSATE SODIUM 100 MG CAPSULE (FP) PO SCH (21:42)
[2021-04-13] MEDS: POLYETHYLENE GLYCOL (HEALTHYLAX) 3350 17 GM PACKET PO SCH ×2 (21:43)
[2021-04-14] MEDS: ACETAMINOPHEN 325 MG TABLET (FP) PO PRN ×2 (03:17→09:42)
[2021-04-14] MEDS: NADOLOL 20 MG TABLET (FP) PO SCH ×2 (09:42→21:21)
[2021-04-14] MEDS: ASCORBIC ACID 500 MG TABLET (FP) PO SCH (09:42)
[2021-04-14] MEDS: APIXABAN 2.5 MG TABLET PO SCH ×2 (09:42→21:20)
[2021-04-14] MEDS: amLODIPine BESYLATE 5 MG TABLET (FP) PO SCH (09:42)
[2021-04-14] MEDS: PREGABALIN 75 MG CAPSULE PO SCH ×2 (09:42→21:20)
[2021-04-14] MEDS: LISINOPRIL 20 MG TABLET PO SCH (09:42)
[2021-04-14] MEDS: CHOLECALCIFEROL (VIT D3) 1,000 UNIT (25 MCG) TABLET PO SCH (09:42)
[2021-04-14] MEDS: POLYETHYLENE GLYCOL (HEALTHYLAX) 3350 17 GM PACKET PO SCH ×3 (09:42→21:24)
[2021-04-14] MEDS: LIDOCAINE PATCH REMOVAL MC SCH (09:43)
[2021-04-14 12:50] LABS: BASO % 0.4 % (0-2.0); EOS % 0.7 % (0-4.5); HEMATOCRIT 32.1 % (32.4-45.2); LYMPH % 12.4 % (8-40); MCH 31.1 pg (25.7-33.7); MCHC 34.2 g/dl (32.0-36.0); MEAN CELL VOLUME 90.9 fl (80-96); MEAN PLT VOLUME 8.1 fl (7.5-11.1); MONO % 14.6 % (3.8-10.2); NEUT % 71.9 % (42.8-82.8); PLATELET COUNT 290 10^3/uL (134-434); RBC 3.53 M/mm3 (3.60-5.2); RDW 15.2 % (11.6-15.6); WHITE BLOOD COUNT 15.5 K/mm3 (4.0-10.0)
[2021-04-14] MEDS: DOCUSATE SODIUM 100 MG CAPSULE (FP) PO SCH (21:20)
[2021-04-14] MEDS: ATORVASTATIN CA 10 MG TABLET (FP) PO SCH (21:20)
[2021-04-15 02:25] VITALS: BP 141/58; PULSE 99; TEMP 98.9
[2021-04-15] MEDS: ACETAMINOPHEN 325 MG TABLET (FP) PO PRN (02:41)
== END 2021-04-15 05:00 | DRG 481 ==
LOC: JER 17:40 → JERBED 19:34 → J6S 04-12 00:50
PROVIDERS: ADMIT Internal Medicine; ATTEND Family Medicine
PROC: BQ10ZZZ Fluoroscopy of Right Hip (ICD-10-PCS; 2021-04-12)
PROC: 0QH636Z Insertion of Intramedullary Internal Fixation Device into Right Upper Femur, Percutaneous Approach (ICD-10-PCS; principal; 2021-04-12 08:00)
DX: S72.141A Displaced intertrochanteric fracture of right femur, initial encounter for closed fracture (principal); I13.0 Hypertensive heart and chronic kidney disease with heart failure and stage 1 through stage 4 chronic kidney disease, or unspecified chronic kidney disease; I48.91 Unspecified atrial fibrillation; E78.5 Hyperlipidemia, unspecified; N18.9 Chronic kidney disease, unspecified; D72.829 Elevated white blood cell count, unspecified; I50.9 Heart failure, unspecified; W19.XXXA Unspecified fall, initial encounter; Y93.9 Activity, unspecified; Y92.89 Other specified places as the place of occurrence of the external cause; Y99.9 Unspecified external cause status
CPT/HCPCS: 36415; 72170-TC-FY; 73502-TC-RT-FY; 73560-TC-RT-FY; 80053; 85025; 85610; 85730; 86850; 86900; 86901; 93005; 93010; 94760; 97116-GP; 97162-GP; 99285-25; C9803; J0131; U0003; U0005

== ENCOUNTER → 2022-01-20 | Day surgery (SDC) | payer OTHER, BC | END | disposition home or self-care (01) | LOC: JRADUS 13:04 → JRADUS-SUR 13:04 | PROVIDERS: ATTEND Physician Assistant | PROC: 0H9U3ZX Drainage of Left Breast, Percutaneous Approach, Diagnostic (ICD-10-PCS; principal; 2022-01-20) | DX: C50.412 Malignant neoplasm of upper-outer quadrant of left female breast (principal) | CPT/HCPCS: 19083; 77065-TC; 87899; 88305-TC; 88341-TC; 88342-TC; A4648 ==

== ENCOUNTER 2022-06-30 18:30 | Emergency (ER) | payer OTHER, BC ==
[2022-06-30 19:02] VITALS: BP 178/82; PULSE 86; RESP 16; TEMP 98; BMI 24.0
[2022-06-30] MEDS ORDERED: ACETAMINOPHEN 500 MG TABLET (FP) PO ONE (19:40)
[2022-06-30] MEDS ORDERED: ACETAMINOPHEN 500 MG TABLET (FP) ONE (20:15)
== END 2022-06-30 20:49 | disposition home or self-care (01) ==
LOC: FER 18:30
DX: S00.83XA Contusion of other part of head, initial encounter (principal); S63.92XA Sprain of unspecified part of left wrist and hand, initial encounter; W01.0XXA Fall on same level from slipping, tripping and stumbling without subsequent striking against object, initial encounter
CPT/HCPCS: 70450-TC; 70486-TC; 72125-TC; 73110-TC-LT-FY; 73130-TC-LT-FY; 99284-25

== ENCOUNTER 2022-07-20 04:25 | Day surgery (SDC) | payer OTHER, BC ==
[2022-07-16 14:50] VITALS: BMI 24.0
[~2022-07-20 04:25] MED LIST changes: +BUPIVACAINE HCL/PF 0.75% 10 ML VIAL PNB ONE; +LIDOCAINE 1% P/F 10 MG/ML VIAL PNB ONE; -LIDOCAINE 1%/EPI 1:100000 (50 ML MULTI DOSE VIAL) NR ONE
[2022-07-20] MEDS ORDERED: LIDOCAINE HCL/PF 1% SDV 5ML VIAL ONE (07:25)
[2022-07-20] MEDS ORDERED: BUPIVACAINE HCL/PF 0.5% (5MG/ML) 10 ML VIAL ONE (07:25)
[2022-07-20] MEDS ORDERED: LIDOCAINE 1% P/F 10 MG/ML VIAL PNB ONE (10:32)
[2022-07-20] MEDS ORDERED: BUPIVACAINE HCL/PF 0.75% 10 ML VIAL PNB ONE (10:32)
[2022-07-20 11:47] VITALS: RESP 16
[2022-07-20 12:13] VITALS: BP 156/66; PULSE 62; TEMP 97.5
== END 2022-07-20 12:10 | disposition home or self-care (01) ==
LOC: JASU-SURG 04:25
PROVIDERS: ATTEND Pain Medicine Pain Medicine
PROC: 3E0T33Z Introduction of Anti-inflammatory into Peripheral Nerves and Plexi, Percutaneous Approach (ICD-10-PCS; 2022-07-20)
PROC: 3E0T3BZ Introduction of Anesthetic Agent into Peripheral Nerves and Plexi, Percutaneous Approach (ICD-10-PCS; principal; 2022-07-20 10:30)
DX: M47.812 Spondylosis without myelopathy or radiculopathy, cervical region (principal)
CPT/HCPCS: 76000-TC-FY

== ENCOUNTER 2023-04-10 12:06 | Emergency (ER) | payer OTHER, BC ==
[2023-04-10] MEDS ORDERED: ACETAMINOPHEN 500 MG TABLET (FP) PO ONE (12:18)
[2023-04-10 12:22] VITALS: BP 150/71; PULSE 76; RESP 18; TEMP 97.7; BMI 24.0
[2023-04-10] MEDS ORDERED: ACETAMINOPHEN 500 MG TABLET (FP) ONE (12:29)
== END 2023-04-10 15:01 | disposition home or self-care (01) ==
LOC: FER 12:06
DX: M25.522 Pain in left elbow (principal); M25.552 Pain in left hip; W01.198A Fall on same level from slipping, tripping and stumbling with subsequent striking against other object, initial encounter; Y92.481 Parking lot as the place of occurrence of the external cause
CPT/HCPCS: 70450-TC; 72125-TC; 72170-TC-FY; 73070-TC-LT-FY; 73502-TC-LT-FY; 73552-TC-LT-FY; 99284-25

== ENCOUNTER 2023-11-19 13:54 | Inpatient (IN) | payer OTHER, BC ==
[2023-11-19] MEDS ORDERED: AMPICILLIN NA/SULBACTAM NA 3 GM/100 ML BAG IVPB ONE (14:30)
[2023-11-19] MEDS ORDERED: ACETAMINOPHEN 500 MG TABLET (FP) ONE (14:32)
[2023-11-19] MEDS: AMPICILLIN NA/SULBACTAM NA 3 GM in SODIUM CHLORIDE 100 ML IVPB ONE (15:06)
[2023-11-19] MEDS: ACETAMINOPHEN 500 MG TABLET (FP) PO ONE (15:06)
[2023-11-19] MEDS ORDERED: DIPHTH,PERTUSS(ACELL),TET 0.5 ML DISP.SYRIN IM ONE (17:02)
[2023-11-19] MEDS: DIPHTH,PERTUSS(ACELL),TET 0.5 ML DISP.SYRIN IM ONE (17:33)
[2023-11-19 19:13] LABS: BASO % 0.5 % (0-2.0); EOS % 0.6 % (0-4.5); HEMATOCRIT 41.8 % (32.4-45.2); HEMOGLOBIN 14.1 GM/dL (10.7-15.3); LYMPH % 9.3 % (8-40); MCH 31.6 pg (25.7-33.7); MCHC 33.8 g/dl (32.0-36.0); MEAN CELL VOLUME 93.7 fl (80-96); MEAN PLT VOLUME 8.3 fl (7.5-11.1); MONO % 5.4 % (3.8-10.2); NEUT % 84.2 % (42.8-82.8); PLATELET COUNT 167 10^3/uL (134-434); RBC 4.46 M/mm3 (3.60-5.2); RDW 13.8 % (11.6-15.6); WHITE BLOOD COUNT 12.6 K/mm3 (4.0-10.0)
[2023-11-19 19:20] LABS: INR 1.38 (0.83-1.09); PROTHROMBIN TIME (PATIENT) 15.5 SEC (9.7-13.0)
[2023-11-19 19:29] LABS: POTASSIUM 4.2 mmol/L (3.5-5.1)
[2023-11-19 19:32] LABS: ALBUMIN 3.8 g/dl (3.4-5.0); BLOOD UREA NITROGEN 29.7 mg/dL (7-18); CALCIUM 8.8 mg/dL (8.5-10.1)
[2023-11-19 19:34] LABS: CREATININE 1.1 mg/dL (0.55-1.3)
[2023-11-19 19:37] LABS: BILIRUBIN,TOTAL 0.5 mg/dL (0.2-1); TOT PROT 6.8 g/dl (6.4-8.2)
[2023-11-19] MEDS ORDERED: ATORVASTATIN CA 10 MG TABLET (FP) ONE (21:22)
[2023-11-19] MEDS ORDERED: METOPROLOL TARTRATE 50 MG TABLET (FP) ONE (21:22)
[2023-11-19] MEDS ORDERED: APIXABAN 5 MG TABLET ONE (21:22)
[2023-11-19] MEDS ORDERED: AMPICILLIN NA/SULBACTAM NA 1.5 GM VIAL ONE (21:22)
[2023-11-19] MEDS: AMPICILLIN NA/SULBACTAM NA 1.5 GM in SODIUM CHLORIDE 100 ML IVPB SCH (21:52)
[2023-11-19] MEDS: APIXABAN 5 MG TABLET PO SCH (21:52)
[2023-11-19] MEDS: ATORVASTATIN CA 10 MG TABLET (FP) PO SCH (21:52)
[2023-11-19] MEDS: METOPROLOL TARTRATE 50 MG TABLET (FP) PO SCH (21:53)
[2023-11-20] MEDS: ACETAMINOPHEN 1000 MG/100 ML BAG IVPB PRN (01:02)
[2023-11-20 02:19] VITALS: BMI 24.7
[2023-11-20 09:04] LABS: BASO % 0.4 % (0-2.0); EOS % 0.4 % (0-4.5); HEMATOCRIT 41.1 % (32.4-45.2); HEMOGLOBIN 14.1 GM/dL (10.7-15.3); LYMPH % 11.5 % (8-40); MCHC 34.2 g/dl (32.0-36.0); MEAN CELL VOLUME 93.4 fl (80-96); MEAN PLT VOLUME 8.4 fl (7.5-11.1); MONO % 11.4 % (3.8-10.2); NEUT % 76.3 % (42.8-82.8); PLATELET COUNT 165 10^3/uL (134-434); RDW 13.9 % (11.6-15.6); WHITE BLOOD COUNT 12.1 K/mm3 (4.0-10.0)
[2023-11-20 09:22] LABS: POTASSIUM 4.1 mmol/L (3.5-5.1)
[2023-11-20 09:26] LABS: CALCIUM 8.6 mg/dL (8.5-10.1)
[2023-11-20 09:27] LABS: ALBUMIN 3.6 g/dl (3.4-5.0); BLOOD UREA NITROGEN 19.8 mg/dL (7-18)
[2023-11-20 09:30] LABS: BILIRUBIN,TOTAL 0.9 mg/dL (0.2-1); TOT PROT 6.7 g/dl (6.4-8.2)
[2023-11-20] MEDS ORDERED: AMPICILLIN NA/SULBACTAM NA 1.5 GM in SODIUM CHLORIDE 100 ML IVPB SCH (10:06)
[2023-11-20] MEDS: TAMOXIFEN CITRATE 10 MG TABLET PO SCH (10:17)
[2023-11-20] MEDS: LISINOPRIL 10 MG TABLET PO SCH (10:20)
[2023-11-20] MEDS: AMPICILLIN NA/SULBACTAM NA 1.5 GM in SODIUM CHLORIDE 100 ML IVPB SCH (10:21)
[2023-11-20] MEDS: AMPICILLIN NA/SULBACTAM NA 3 GM in SODIUM CHLORIDE 100 ML IVPB SCH ×2 (16:25→21:17)
[2023-11-20] MEDS: ACETAMINOPHEN 1000 MG/100 ML BAG IVPB ONE (18:16)
[2023-11-20] MEDS: APIXABAN 5 MG TABLET PO SCH (21:17)
[2023-11-21 09:33] LABS: BASO % 0.3 % (0-2.0); EOS % 1.5 % (0-4.5); HEMATOCRIT 40.9 % (32.4-45.2); HEMOGLOBIN 13.8 GM/dL (10.7-15.3); LYMPH % 16.4 % (8-40); MCH 31.7 pg (25.7-33.7); MCHC 33.6 g/dl (32.0-36.0); MEAN CELL VOLUME 94.3 fl (80-96); MEAN PLT VOLUME 8.6 fl (7.5-11.1); MONO % 12.3 % (3.8-10.2); NEUT % 69.5 % (42.8-82.8); PLATELET COUNT 155 10^3/uL (134-434); RBC 4.34 M/mm3 (3.60-5.2); RDW 13.6 % (11.6-15.6); WHITE BLOOD COUNT 9.7 K/mm3 (4.0-10.0)
[2023-11-21] MEDS: ACETAMINOPHEN 325 MG TABLET (FP) PO PRN (10:09)
[2023-11-21 17:36] VITALS: RESP 18
[2023-11-21] MEDS: SENNOSIDES 8.6MG TABLET (FP) PO PRN (21:08)
[2023-11-22 09:45] LABS: EOS % 2.8 % (0-4.5); HEMATOCRIT 39.6 % (32.4-45.2); HEMOGLOBIN 13.4 GM/dL (10.7-15.3); LYMPH % 14.7 % (8-40); MCH 31.8 pg (25.7-33.7); MCHC 33.7 g/dl (32.0-36.0); MEAN CELL VOLUME 94.2 fl (80-96); MEAN PLT VOLUME 8.6 fl (7.5-11.1); MONO % 11.2 % (3.8-10.2); NEUT % 70.3 % (42.8-82.8); PLATELET COUNT 152 10^3/uL (134-434); RBC 4.21 M/mm3 (3.60-5.2); RDW 13.8 % (11.6-15.6); WHITE BLOOD COUNT 8.1 K/mm3 (4.0-10.0)
[2023-11-22 12:59] VITALS: BP 143/59; PULSE 82; TEMP 98.3
== END 2023-11-22 14:54 | disposition home or self-care (01) | DRG 603 ==
LOC: JER 13:54 → JERFT 13:54 → JERBED 16:10 → OBSVTOIN 16:21 → J8W 11-20 00:11
PROVIDERS: ADMIT Family Medicine; ATTEND Family Medicine
DX: L03.113 Cellulitis of right upper limb (principal); I48.11 Longstanding persistent atrial fibrillation; I10 Essential (primary) hypertension; E78.5 Hyperlipidemia, unspecified; L03.114 Cellulitis of left upper limb; S61.459A Open bite of unspecified hand, initial encounter; W54.0XXA Bitten by dog, initial encounter; Y93.9 Activity, unspecified; Y92.89 Other specified places as the place of occurrence of the external cause; Y99.9 Unspecified external cause status
CPT/HCPCS: 0241U-QW; 36415; 73130-TC-LT-FY; 73130-TC-RT-FY; 80053; 84479; 85025; 85610; 86140; 86850; 86900; 86901; 87040; 90715; 97116-GP; 97161-GP; 99285-25; G0378; J0131